=== PATIENT | male | born 1975 | race Caucasian/White ===

== ENCOUNTER 2024-04-28 10:14 | Emergency (ER) | payer MEDICAID, SELFPAY ==
[2024-04-28 10:19] VITALS: BP 142/97; PULSE 100; TEMP 37; O2SAT 100; BMI 28.7
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
[2024-04-28] MEDS: ONDANSETRON 4 MG RAPDIS TABLET SL (11:23)
[2024-04-28] MEDS: KETOROLAC TROMETHAMINE 30 MG/ML VIAL IM (11:23)
[2024-04-28 11:50] VITALS: BP 114/71; PULSE 75; O2SAT 97
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
== END 2024-04-28 12:41 | disposition home or self-care (01) ==
PROVIDERS: Emergency Provider Emergency Medicine; PCP Family Medicine
DX: S32.031A Stable burst fracture of third lumbar vertebra, initial encounter for closed fracture (principal); S00.211A Abrasion of right eyelid and periocular area, initial encounter; V49.9XXA Car occupant (driver) (passenger) injured in unspecified traffic accident, initial encounter
CPT/HCPCS: 70450; 70486; 72131; 96372; 99284; J1885; Q0162